=== PATIENT | male | born 1945 | race Caucasian/White ===

== ENCOUNTER 2016-11-20 09:09 | Emergency (ER) | payer MEDICARE ==
[2016-11-20 09:50] LABS: Basophils % (A) 1 %; CH 33.2; CHCM 34.1; Eosinophils # (A) 0.1 k/uL (0-0.7); Eosinophils % (A) 2 %; HCT 46.6 % (39.0-53.0); HDW 2.31; HGB 15.7 gm/dL (13.0-17.5); Luc # (Auto) 0.08; Luc % (Auto) 3; Lymphocytes # (A) 0.6 k/uL (1.0-4.8); Lymphocytes % (A) 22 %; MCH 32.9 pg (25.0-35.0); MCHC 33.7 g/dL (31.0-37.0); MCV 97.8 fL (80.0-100.0); Mean Platelet Volume 7.2; Monocytes # (A) 0.2 k/uL (0-1.0); Monocytes % (A) 8 %; Neutrophils # (A) 1.9 k/uL (1.3-7.7); Neutrophils % (A) 64 %; RBC 4.76 m/uL (4.30-5.90); RDW 12.3 % (11.5-15.5); WBC 2.9 k/uL (3.8-10.6); WBC (Perox) 2.83
[2016-11-20 09:58] LABS: INR 1.1 (<1.1); Prothrombin Time 10.9 sec (9.0-12.0)
--- NOTE | 2016-11-20 10:01 | ED ---
General Adult HPI - General Chief complaint: Chest Pain Stated complaint: chest pain Time Seen by Provider: 11/20/16 09:17 Source: patient, RN notes reviewed, old records reviewed Mode of arrival: wheelchair Limitations: no limitations - History of Present Illness Initial comments: This is a 8-year-old male the ER for evaluation. Patient presents today evaluation of chest pain, patient is having shortness of breath and chest pain going on for a week, exertional dyspnea occasional cough. Patient admits that feels like prior episodes of pneumonia. No diaphoresis. At this time patient still has a 71 same symptoms. Patient has tried climbing stairs because is no worsening of his symptoms, he was doing some activities today and felt the pain in his hydrocephaly, and get checked out. He has no history of heart disease - Related Data Home Medications Medication Instructions Recorded Confirmed Aspirin 81 mg PO HS 11/20/16 11/20/16 Terazosin HCl [Hytrin] 10 mg PO HS 11/20/16 11/20/16 Allergies Allergy/AdvReac Type Severity Reaction Status Date / Time shellfish derived [Shellfish] Allergy Unknown Verified 11/20/16 09:55 Sulfa (Sulfonamide Allergy Rash/Hives Verified 11/20/16 09:55 Antibiotics) Review of Systems ROS Statement: Those systems with pertinent positive or pertinent negative responses have been documented in the HPI. ROS Other: All systems not noted in ROS Statement are negative. Past Medical History Past Medical History: Prostate Disorder History of Any Multi-Drug Resistant Organisms: None Reported Past Surgical History: Joint Replacement, Orthopedic Surgery Additional Past Surgical History / Comment(s): right hip replacement, rotator cuff right shoulder Past Psychological History: No Psychological Hx Reported Smoking Status: Never smoker Past Alcohol Use History: Occasional Past Drug Use History: None Reported General Exam Limitations: no limitations General appearance: alert, in no apparent distress Head exam: Present: atraumatic, normocephalic, normal inspection Eye exam: Present: normal appearance, PERRL, EOMI. Absent: scleral icterus, conjunctival injection, periorbital swelling ENT exam: Present: normal exam, mucous membranes moist Neck exam: Present: normal inspection. Absent: tenderness, meningismus, lymphadenopathy Respiratory exam: Present: normal lung sounds bilaterally. Absent: respiratory distress, wheezes, rales, rhonchi, stridor Cardiovascular Exam: Present: regular rate, normal rhythm, normal heart sounds. Absent: systolic murmur, diastolic murmur, rubs, gallop, clicks GI/Abdominal exam: Present: soft, normal bowel sounds. Absent: distended, tenderness, guarding, rebound, rigid Extremities exam: Present: normal inspection, full ROM, normal capillary refill. Absent: tenderness, pedal edema, joint swelling, calf tenderness Back exam: Present: normal inspection Neurological exam: Present: alert, oriented X3, CN II-XII intact Psychiatric exam: Present: normal affect, normal mood Skin exam: Present: warm, dry, intact, normal color. Absent: rash Course Vital Signs 11/20/16 11/20/16 11/20/16 09:13 10:39 12:30 Temperature 98.5 F Pulse Rate 77 58 L 66 Respiratory 20 18 18 Rate Blood Pressure 149/71 141/79 177/80 O2 Sat by Pulse 99 97 99 Oximetry - Reevaluation(s) Reevaluation #1: 11/20/16 13:34 Patient is in no acute distress, no chest pain Reevaluation #2: 11/20/16 13:[address] Kaufman we will give patient's CTA EKG Findings - EKG Comments: EKG Findings:: EKG shows normal sinus rhythm rate of 74, ME 136, QRS 84, QTC 421 Medical Decision Making - Medical Decision Making 73 the ER for evaluation. Patient has nonspecific atypical chest pain, this will continue with outpatient stress test, see Dr. Wray office, EKG CTA and troponin are negative - Lab Data Result diagrams: 11/20/16 09:33 11/20/16 09:33 Lab Results 11/20/16 11/20/16 11/20/16 Range/Units 09:33 09:33 09:33 WBC 2.9 L (3.8-10.6) k/uL RBC 4.76 (4.30-5.90) m/uL Hgb 15.7 (13.0-17.5) gm/dL Hct 46.6 (39.0-53.0) % MCV 97.8 (80.0-100.0) fL MCH 32.9 (25.0-35.0) pg MCHC 33.7 (31.0-37.0) g/dL RDW 12.3 (11.5-15.5) % Plt Count 191 (150-450) k/uL Neutrophils % 64 % Lymphocytes % 22 % Monocytes % 8 % Eosinophils % 2 % Basophils % 1 % Neutrophils # 1.9 (1.3-7.7) k/uL Lymphocytes # 0.6 L (1.0-4.8) k/uL Monocytes # 0.2 (0-1.0) k/uL Eosinophils # 0.1 (0-0.7) k/uL Basophils # 0.0 (0-0.2) k/uL PT (9.0-12.0) sec INR (<1.1) APTT (22.0-30.0) sec Sodium 143 (137-145) mmol/L Potassium 4.2 (3.5-5.1) mmol/L Chloride 107 (98-107) mmol/L Carbon Dioxide 26 (22-30) mmol/L Anion Gap 10 mmol/L BUN 16 (9-20) mg/dL Creatinine 1.02 (0.66-1.25) mg/dL Est GFR (MDRD) Af Amer >60 (>60 ml/min/1.73 sqM) Est GFR (MDRD) Non-Af >60 (>60 ml/min/1.73 sqM) Glucose 141 H (74-99) mg/dL Calcium 9.2 (8.4-10.2) mg/dL Magnesium 2.3 (1.6-2.3) mg/dL Total Bilirubin 0.7 (0.2-1.3) mg/dL AST 24 (17-59) U/L ALT 20 L (21-72) U/L Alkaline Phosphatase 76 (38-126) U/L Total Creatine Kinase 107 (55-170) U/L CK-MB (CK-2) 1.5 (0.0-2.4) ng/mL CK-MB (CK-2) Rel Index 1.4 Troponin I <0.012 (0.000-0.034) ng/mL Total Protein 7.2 (6.3-8.2) g/dL Albumin 4.3 (3.5-5.0) g/dL Lipase 46 (23-300) U/L 11/20/16 Range/Units 09:33 WBC (3.8-10.6) k/uL RBC (4.30-5.90) m/uL Hgb (13.0-17.5) gm/dL Hct (39.0-53.0) % MCV (80.0-100.0) fL MCH (25.0-35.0) pg MCHC (31.0-37.0) g/dL RDW (11.5-15.5) % Plt Count (150-450) k/uL Neutrophils % % Lymphocytes % % Monocytes % % Eosinophils % % Basophils % % Neutrophils # (1.3-7.7) k/uL Lymphocytes # (1.0-4.8) k/uL Monocytes # (0-1.0) k/uL Eosinophils # (0-0.7) k/uL Basophils # (0-0.2) k/uL PT 10.9 (9.0-12.0) sec INR 1.1 (<1.1) APTT 24.0 (22.0-30.0) sec Sodium (137-145) mmol/L Potassium (3.5-5.1) mmol/L Chloride (98-107) mmol/L Carbon Dioxide (22-30) mmol/L Anion Gap mmol/L BUN (9-20) mg/dL Creatinine (0.66-1.25) mg/dL Est GFR (MDRD) Af Amer (>60 ml/min/1.73 sqM) Est GFR (MDRD) Non-Af (>60 ml/min/1.73 sqM) Glucose (74-99) mg/dL Calcium (8.4-10.2) mg/dL Magnesium (1.6-2.3) mg/dL Total Bilirubin (0.2-1.3) mg/dL AST (17-59) U/L ALT (21-72) U/L Alkaline Phosphatase (38-126) U/L Total Creatine Kinase (55-170) U/L CK-MB (CK-2) (0.0-2.4) ng/mL CK-MB (CK-2) Rel Index Troponin I (0.000-0.034) ng/mL Total Protein (6.3-8.2) g/dL Albumin (3.5-5.0) g/dL Lipase (23-300) U/L - Radiology Data Radiology results: report reviewed (Chest x-ray is negative, CT is negative for PE), image reviewed Disposition Clinical Impression: Chest pain Disposition: HOME SELF-CARE Condition: Good Instructions: Chest Pain (ED) Referrals: Mendez Acosat MD [Primary Care Provider] - 1-2 days
--- NOTE | 2016-11-20 10:01 | XR ---
EXAMINATION TYPE: XR chest 2V DATE OF EXAM: 11/20/2016 9:49 AM COMPARISON: Prior chest x-ray 18 April 2013 HISTORY: Chest pain TECHNIQUE: Frontal and lateral views of the chest are obtained. FINDINGS: There is no focal air space opacity, pleural effusion, or pneumothorax seen. The cardiac silhouette size is within normal limits. There are overlying cardiac leads. Patient is rotated. Pro minent lung volume may be indicative of COPD. The osseous structures are intact. IMPRESSION: No acute cardiopulmonary process.
[2016-11-20 10:03] LABS: ALT 20 U/L (21-72); AST 24 U/L (17-59); Alkaline Phosphatase 76 U/L (38-126); Anion Gap 10 mmol/L; Blood Urea Nitrogen 16 mg/dL (9-20); Calcium 9.2 mg/dL (8.4-10.2); Carbon Dioxide 26 mmol/L (22-30); Chloride 107 mmol/L (98-107); Glucose 141 mg/dL (74-99); Magnesium 2.3 mg/dL (1.6-2.3); Non-African American GFR(MDRD) >60 (>60 ml/min/1.73 sqM); Potassium 4.2 mmol/L (3.5-5.1); Sodium 143 mmol/L (137-145); Total Bilirubin 0.7 mg/dL (0.2-1.3); Total Protein 7.2 g/dL (6.3-8.2)
[2016-11-20 10:20] LABS: Creatine Kinase 107 U/L (55-170)
[2016-11-20 10:33] LABS: Creatine Kinase MB 1.5 ng/mL (0.0-2.4); Troponin I <0.012 ng/mL (0.000-0.034)
[2016-11-20 10:40] VITALS: RESP 18
[2016-11-20] MEDS ORDERED: RX INFO: IV CONTRAST WAS GIVEN 1 EACH MISC MISCELLANE PRN (11:46)
[2016-11-20] MEDS ORDERED: methylPREDNISolone SOD SUCCI 125 MG/2 ML VIAL IV STA (12:16)
[2016-11-20] MEDS ORDERED: diphenhydrAMINE 50 MG/ML 1 ML VIAL IVP STA (12:16)
[2016-11-20] MEDS ORDERED: FAMOTIDINE 20 MG/2 ML VIAL IV STA (12:16)
--- NOTE | 2016-11-20 13:00 | CT ---
EXAMINATION TYPE: CT angio chest DATE OF EXAM: 11/20/2016 12:52 PM COMPARISON: NONE HISTORY: Shortness of breath CT DLP: 529 mGycm CONTRAST: CT chest with contrast and 3D reconstruction with MIP imaging is performed with IV Contrast, patient injected with 100 mL of Omnipaque 350. Contrast-enhanced CT of the chest was performed through the course of the pulmonary arteries with vera g and mediastinal window settings submitted. 3D reconstruction with MIP imaging was also performed. PULMONARY ARTERIES: The pulmonary arteries and their major tributaries are patent. I do not see lakeshia dence for sizable filling defect to suggest pulmonary embolic process. LUNGS: The lungs are clear and free of infiltrate. Mild basilar compressive atelectasis. Calcified gr anuloma right lower lobe. No pulmonary nodule or mass is detected. No pleural effusion. MEDIASTINUM: Thoracic aorta is mildly aneurysmal at 4.1 cm. No complicating factor identified. The h eart is not enlarged. No evidence for mediastinal mass. No mediastinal lymph nodes greater than 1cm . HILAR STRUCTURES: No evidence for mass. No hilar lymph nodes greater than 1 cm. UPPER ABDOMEN: No significant abnormality is seen. IMPRESSION: 1. No evidence for Pulmonary embolism at this time.
[2016-11-20 13:35] VITALS: BP 163/85; PULSE 63; TEMP 97.6
== END 2016-11-20 13:39 | disposition home or self-care (01) ==
LOC: EC 09:09
DX: R07.89 Other chest pain (principal); R06.02 Shortness of breath; R05 Cough; N42.9 Disorder of prostate, unspecified; Z79.82 Long term (current) use of aspirin; Z79.899 Other long term (current) drug therapy; Z88.2 Allergy status to sulfonamides; Z91.013 Allergy to seafood
CPT/HCPCS: 36415; 93005; 80053; 82550; 82553; 83690; 83735; 84484; 85025; 85610; 85730; 71020; 71275; 99285; 96374; 96375 ×2; J1200; J2930; Q9967

== ENCOUNTER 2018-04-14 11:32 | Emergency (ER) | payer MEDICARE ==
--- NOTE | 2018-04-14 11:38 | ED ---
Chest Pain HPI - General Stated Complaint: chest pain Time Seen by Provider: 04/14/18 11:38 Source: RN notes reviewed, old records reviewed - History of Present Illness Initial Comments: This is a 72-year-old male the ER for evaluation. Patient presents today for evaluation regarding palpitations heart palpitations. Patient denies chest pain. Patient states he hasn't been feeling well this afternoon, feeling his heart is racing, feels weak and lightheaded. Denies any recent change in medications no drugs or alcohol abuse, no significant ingestion of caffeine. No recent travel history or sick contacts. No cough congestion or shortness of breath MD Complaint: other (palpitations) -: hour(s) Onset: during rest Worsens With: exertion Anginal Symptoms: dyspnea Other Symptoms: palpitations - Related Data Home Medications Medication Instructions Recorded Confirmed Aspirin 81 mg PO HS 11/20/16 04/14/18 Terazosin HCl [Hytrin] 10 mg PO HS 11/20/16 04/14/18 Allergies Allergy/AdvReac Type Severity Reaction Status Date / Time shellfish derived [Shellfish] Allergy Unknown Verified 04/14/18 12:44 Sulfa (Sulfonamide Allergy Rash/Hives Verified 04/14/18 12:44 Antibiotics) Review of Systems ROS Statement: Those systems with pertinent positive or pertinent negative responses have been documented in the HPI. ROS Other: All systems not noted in ROS Statement are negative. EKG Findings - EKG Comments: EKG Findings:: EKG shows A. fib with RVR rate 144, QRS 100, QTc 467. EKG shows sinus rhythm rate of 79, [place] 142, QRS 90, QTc 435 Past Medical History Past Medical History: Prostate Disorder History of Any Multi-Drug Resistant Organisms: None Reported Past Surgical History: Joint Replacement, Orthopedic Surgery Additional Past Surgical History / Comment(s): right hip replacement, rotator cuff right shoulder Past Psychological History: No Psychological Hx Reported Smoking Status: Never smoker Past Alcohol Use History: Occasional Past Drug Use History: None Reported General Exam General appearance: alert, in no apparent distress Head exam: Present: atraumatic, normocephalic, normal inspection Eye exam: Present: normal appearance, PERRL, EOMI. Absent: scleral icterus, conjunctival injection, periorbital swelling ENT exam: Present: normal exam, mucous membranes moist Neck exam: Present: normal inspection. Absent: tenderness, meningismus, lymphadenopathy Respiratory exam: Present: normal lung sounds bilaterally. Absent: respiratory distress, wheezes, rales, rhonchi, stridor Cardiovascular Exam: Present: tachycardia, irregular rhythm, normal heart sounds. Absent: systolic murmur, diastolic murmur, rubs, gallop, clicks GI/Abdominal exam: Present: soft, normal bowel sounds. Absent: distended, tenderness, guarding, rebound, rigid Extremities exam: Present: normal inspection, full ROM, normal capillary refill. Absent: tenderness, pedal edema, joint swelling, calf tenderness Back exam: Present: normal inspection Neurological exam: Present: alert, oriented X3, CN II-XII intact Psychiatric exam: Present: normal affect, normal mood Skin exam: Present: warm, dry, intact, normal color. Absent: rash Course Vital Signs 04/14/18 04/14/18 11:38 12:15 Temperature 97.1 F L Pulse Rate 141 H 83 Respiratory 18 18 Rate Blood Pressure 151/71 O2 Sat by Pulse 96 100 Oximetry - Reevaluation(s) Reevaluation #1: 04/14/18 12:35 Medical records thoroughly reviewed Reevaluation #2: 04/14/18 12:35 Patient spontaneously converted from A. fib with RVR, new EKG shows normal sinus rhythm Reevaluation #3: 04/14/18 12:35 Studies Chest x-rays negative for acute disease Chest Pain MDM - [facility] 72-year-old male the ER for evaluation of racing heart, patient found to be in A. fib with RVR. Patient spontaneously converted. We'll admit for cardiology evaluation Disposition Clinical Impression: Atrial fibrillation, Atrial fibrillation with rapid ventricular response Disposition: ADMITTED IP TO THIS HOSP Condition: Fair Is patient prescribed a controlled substance at d/c from ED?: No Referrals: Mendez Acosta MD [Primary Care Provider] - 1-2 days
[2018-04-14 11:40] VITALS: RESP 18; TEMP 97.1
[2018-04-14] MEDS ORDERED: DILTIAZEM DRIP BOLUS FROM BAG 1 MG SOLN IV ONE (11:43)
[2018-04-14] MEDS ORDERED: DILTIAZEM 50 MG in SODIUM CHLORIDE 0.9% 40 ML IV SCH (11:45)
--- NOTE | 2018-04-14 12:25 | XR ---
EXAMINATION TYPE: XR chest 2V DATE OF EXAM: 04/14/2018 COMPARISON: 11/20/2016 INDICATION: Chest pain irregular heartbeat short of breath TECHNIQUE: Frontal and lateral views of the chest are obtained. FINDINGS: The heart size is normal. The pulmonary vasculature is normal. The lungs are clear. Spondylosis is through the thoracic spine. No significant interval changes evid ent. IMPRESSION: 1. No acute pulmonary process.
[2018-04-14] MEDS ORDERED: NITROGLYCERIN SL TABS 0.4 MG TAB SUBLINGUAL PRN (12:33)
[2018-04-14] MEDS ORDERED: ASPIRIN 81 MG PO STA (12:33)
[2018-04-14 12:44] LABS: Basophils % (A) 1 %; Eosinophils % (A) 1 %; HCT 45.7 % (39.0-53.0); HGB 15.3 gm/dL (13.0-17.5); Lymphocytes # (A) 0.4 k/uL (1.0-4.8); Lymphocytes % (A) 9 %; MCH 32.6 pg (25.0-35.0); MCHC 33.6 g/dL (31.0-37.0); MCV 97.2 fL (80.0-100.0); Mean Platelet Volume 7.5; Monocytes # (A) 0.4 k/uL (0-1.0); Monocytes % (A) 8 %; Neutrophils # (A) 3.7 k/uL (1.3-7.7); Neutrophils % (A) 79 %; Platelet Count 190 k/uL (150-450); WBC 4.7 k/uL (3.8-10.6)
[2018-04-14] MEDS ORDERED: SODIUM CHLORIDE 0.9% 1,000 ML IV SCH (12:45)
[2018-04-14 12:46] LABS: Albumin 4.2 g/dL (3.5-5.0); Calcium 9.5 mg/dL (8.4-10.2); Magnesium 2.1 mg/dL (1.6-2.3); Potassium 4.4 mmol/L (3.5-5.1); Total Bilirubin 0.8 mg/dL (0.2-1.3)
[2018-04-14 12:50] LABS: INR 1.1 (<1.2); Partial Thromboplastin Time 22.8 sec (22.0-30.0); Prothrombin Time 10.4 sec (9.0-12.0)
[2018-04-14 13:13] LABS: Troponin I 0.027 ng/mL (0.000-0.034)
[2018-04-14 14:14] VITALS: BP 132/75
[2018-04-14 15:15] VITALS: PULSE 66
[2018-04-15] MEDS ORDERED: ASPIRIN 325 MG TAB PO SCH (09:00)
== END 2018-04-14 15:15 | disposition other institution (70) ==
LOC: EC 11:32
DX: I48.91 Unspecified atrial fibrillation (principal); N42.9 Disorder of prostate, unspecified; Z88.2 Allergy status to sulfonamides; Z91.013 Allergy to seafood; Z79.82 Long term (current) use of aspirin; Z79.899 Other long term (current) drug therapy; Z53.8 Procedure and treatment not carried out for other reasons
CPT/HCPCS: 36415; 71046; 80053; 82550; 82553; 83690; 83735; 83880; 84484; 85025; 85610; 85730; 93005; 99285

== ENCOUNTER → 2019-01-03 | Outpatient (CLI) | payer MEDICARE ==
--- NOTE | 2019-01-03 08:18 | US ---
EXAMINATION TYPE: US carotid duplex BILAT DATE OF EXAM: 01/03/2019 COMPARISON: NONE CLINICAL HISTORY: I65.23 Occlusion and stenosis of bilateral carotid. dizzy, vertigo, no HTN, no TIA EXAM MEASUREMENTS: RIGHT: Peak Systolic Velocity (PSV) cm/sec ----- Right CCA: 77.8 ----- Right ICA: 72.1 ----- Right ECA: 105.7 ICA/CCA ratio: 0.9 RIGHT: End Diastole cm/sec ----- Right CCA: 17.2 ----- Right ICA: 24.1 ----- Right ECA: 13.7 LEFT: Peak Systolic Velocity (PSV) cm/sec ----- Left CCA: 61.6 ----- Left ICA: 61.0 ----- Left ECA: 77.8 ICA/CCA ratio: 1.0 LEFT: End Diastole cm/sec ----- Left CCA: 14.5 ----- Left ICA: 19.0 ----- Left ECA: 9.5 VERTEBRALS (direction of flow): Right Vertebral: Antegrade Left Vertebral: Antegrade Rhythm: Normal No elevated velocities, significant stenosis, wall thickening or plaque seen. IMPRESSION: Mild degree of grayscale atheromatous plaquing with no sonographically evident hemodynam ically significant stenosis within either visualized carotid arterial system. Criteria for Assigning % of Stenosis / Diameter reduction (Estimation based on the indirect measurements of the internal carotid artery velocities (ICA PSV). 1. Normal (no stenosis)=ICA PSV < 125 cm/s: ratio < 2.0: ICA EDV<40 cm/s. 2. Less than 50% stenosis=ICA PSV < 125 cm/s: ratio < 2.0: ICA EDV<40 cm/s. 3. 50 to 69% stenosis=ICA PSV of 125 to 230 cm/s: ration 2.0 ? 4.0: ICA EDV 40-100 cm/s. 4. Greater than 70% stenosis to near occlusion= ICA PSV > 230 cm/s: ratio > 4.0: ICA EDV > 100 cm/s. 5. Near occlusion= ICA PSV velocities may be low or undetectable: variable ratio and ICA EDV. 6. Total occlusion=unable to detect flow.
== END | disposition home or self-care (01) ==
LOC: RADUSWWP 12-22 06:36
PROVIDERS: ATTEND Internal Medicine Geriatric Medicine
DX: I67.2 Cerebral atherosclerosis (principal)
CPT/HCPCS: 93880

== ENCOUNTER → 2019-01-05 | Outpatient (CLI) | payer MEDICARE ==
--- NOTE | 2019-01-05 12:09 | MR ---
EXAMINATION TYPE: MR brain wo/w con DATE OF EXAM: 01/05/2019 COMPARISON: HISTORY: Vertigo TECHNIQUE: Multiplanar, multisequence images of the brain and brainstem is performed without and with IV contras t, utilizing 8.5 mL intravenous Gadavist . FINDINGS: Diffusion weighted images demonstrate no evidence of a recent infarct or other diffusion ab normality. There is no extra-axial fluid collection. Periventricular, sub and juxtacortical confluen t and scattered hyperintensities on inversion recovery T2-weighted sequences are noted, greater than 50 lesions are present. There are normal vascular flow voids. The ventricular system and cisternal s paces are normal in size and appearance. The brain volume is age appropriate. Midline structures demonstrate normal morphology. The craniocervical junction appears within normal limits. Post contrast images demonstrate no abnormal enhancement. The dural venous sinuses appear pa tent. The visualized sinuses are remarkable for mild mucoperiosteal thickening in the maxillary sinus , ethmoid air cells and the globes are intact. IMPRESSION: Nonspecific white matter demyelination likely related to chronic small vessel ischemic ch anges.
== END | disposition home or self-care (01) ==
LOC: RADMRIMAIN 08:30
PROVIDERS: ATTEND Internal Medicine Geriatric Medicine
DX: G37.8 Other specified demyelinating diseases of central nervous system (principal)
CPT/HCPCS: 70553; A9585

== ENCOUNTER → 2019-01-06 | Outpatient (CLI) | payer MEDICARE ==
--- NOTE | 2019-01-06 12:14 | CONS ---
CONSULTATION DATE OF SERVICE: 01/06/2019 This 73-year-old gentleman has been evaluated in the sleep center for possible obstructive sleep apnea-hypopnea syndrome. HISTORY OF PRESENT ILLNESS/SLEEP-WAKE EVALUATION: Patient usual sleep schedule from 10 p.m. to 6 or 7 a.m. basically 7 days a week. No problems with falling asleep. No TV in bedroom. He sleeps in different positions with his . He has snoring according to her and he wakes up from sleep 2 times with nocturia. He may take one nap during the day at noon time. Usually feels refreshed after a nap. No seeing any vivid dreams during the nap. No history of hypnagogic hallucinations, sleep paralysis or cataplexy. [place] Sleepiness Scale is 7. PAST MEDICAL HISTORY: Positive for episodes of atrial fibrillation in April 2018, converted to normal sinus rhythm by itself, BPH. PAST SURGICAL HISTORY: Total right hip replacement, right shoulder surgery for rotator cuff, mandibular advancement surgery. MEDICATIONS: Terazosin, baby aspirin. SOCIAL HISTORY: Negative for smoking. Alcohol consumption 1 glass of wine with dinner daily. FAMILY HISTORY: Hypertension, CHF. REVIEW OF SYSTEMS: Awakenings from sleep with nocturia sometimes sleepiness during the day. Mild snoring. PHYSICAL EXAMINATION: During physical exam, gentleman without distress. VITAL SIGNS: BP 143/77, HR 68, RR 16, height 5 feet 11 inches, weight 192, body mass index 26.7, temperature 97.7, oxygen saturation at room air 98%. HEENT: PERRLA, EOMI. Oropharynx low position of soft palate. Mallampati 3-4. NECK: Supple, no JVD. Thyroid is not palpable. LUNGS: Clear to percussion and to auscultation. Good air exchange. No wheezing or rhonchi. HEART: S1, S2 regular. No murmurs, gallops, or rubs. ABDOMEN: Soft and nontender. Bowel sounds are present. No organomegaly appreciated. EXTREMITIES: Tendency for swelling of the legs, minimal. GROUND CONTROL APPROACH TECHNICIAN: Awake, alert, and oriented X3. Cranial nerves 2 to 7 intact. There is no fasciculation or atrophy. noted. No focal deficits observed. IMPRESSION: 1. Snoring, awakenings from sleep with nocturia, extremely low position of soft palate, sometimes sleepiness during the day, obstructive sleep apnea-hypopnea syndrome. 2. History of episodes of atrial fibrillation. 3. History of benign prostatic hypertrophy. 4. Status post total right hip replacement. 5. Status post surgical treatment of rotator cuff syndrome on the right shoulder. 6. Status post mandibular advancement surgical procedure. PLAN: 1. Polysomnography for evaluation of patient's breathing during sleep. 2. CPAP/BiPAP titration if sleep study confirms obstructive sleep apnea-hypopnea syndrome. 3. Preferable position during sleep on the side. 4. No driving if patient feels any sleepiness. 5. I will see patient for follow up visit to explain results of testing and following plan. Thank you very much for referring this patient for consultation. Sincerely, Dada Ahmadi MD, PhD, FAASM Diplomat of [employer] Sorting Supervisor of [facility] [place] [facility] / PEPE: [id number] /
== END ==
LOC: SLEEP 10:32
PROVIDERS: ATTEND Internal Medicine
DX: G47.33 Obstructive sleep apnea (adult) (pediatric) (principal); N40.0 Benign prostatic hyperplasia without lower urinary tract symptoms; Z86.79 Personal history of other diseases of the circulatory system; Z96.641 Presence of right artificial hip joint; Z98.890 Other specified postprocedural states; Z99.89 Dependence on other enabling machines and devices; Z79.899 Other long term (current) drug therapy; Z79.82 Long term (current) use of aspirin
CPT/HCPCS: 99211

== ENCOUNTER → 2019-03-22 | Outpatient (CLI) | payer MEDICARE ==
--- NOTE | 2019-03-22 11:09 | CT ---
EXAMINATION TYPE: CT abdomen pelvis w con DATE OF EXAM: 03/22/2019 COMPARISON: CT abdomen and pelvis 2010. HISTORY: Diverticulitis without abscess without bleeding per order. CT DLP: 1245 mGycm, Automated Exposure Control for Dose Reduction was Utilized. CONTRAST: CT scan of the abdomen and pelvis is performed with oral and with IV Contrast, patient injected with 100 mL of Isovue 300. FINDINGS: LUNG BASES: No significant abnormality is appreciated. LIVER/GB: No significant abnormality is appreciated. PANCREAS: No significant abnormality is seen. SPLEEN: No significant abnormality is seen. ADRENALS: No significant abnormality is seen. KIDNEYS: Symmetric cortical medullary uptake and excretion without hydronephrosis seen bilaterally. B ladder is poorly distended and thus suboptimally evaluated. Mild wall thickening is felt present. BOWEL: The oral contrast reaches level of the rectum. There is no suspicious small or large bowel dil atation. Suboptimal distention of stomach with mild to moderate prominence of gastric folds. Correlat e clinically to exclude gastritis. High positioning of cecum and right mid abdomen. Terminal ileum th ought within normal limits. Mild wall thickening left colon with poor distention. Diverticula in the sigmoid colon with mild wall thickening. No significant surrounding inflammatory change. PROSTATE/SEMINAL VESICLES: Slightly enlarged prostate bulging on bladder base. I suspect bladder outl et obstruction related to BPH, correlate clinically. LYMPH NODES: No greater than 1cm abdominal or pelvic lymph nodes are appreciated. OSSEOUS STRUCTURES: Slight underlying levoconvex scoliotic curvature. Multilevel spurring in the thor acolumbar spine. [id number] disc space narrowing with vacuum disc phenomenon and endplate scl erosis of the L4-L5 level. Metallic artifact from right hip arthroplasty causes streak artifact limit ing evaluation of pelvic structures. OTHER: No significant additional abnormality is seen. IMPRESSION: Confirmation of Sigmoid colonic diverticulosis without convincing CT evidence for acute d iverticulitis. Progression of diverticular disease from 2011 study noted.
== END | disposition home or self-care (01) ==
LOC: RADCTMAIN 08:30
PROVIDERS: ATTEND Internal Medicine Geriatric Medicine
DX: K57.30 Diverticulosis of large intestine without perforation or abscess without bleeding (principal)
CPT/HCPCS: 74177; Q9967

== ENCOUNTER → 2019-04-07 | Outpatient (CLI) | payer MEDICARE ==
--- NOTE | 2019-04-07 12:18 | SFUN ---
SLEEP CENTER FOLLOW UP NOTE DATE OF SERVICE: 04/07/2019 A 73-year-old gentleman who has been followed in the Sleep Center to discuss results of sleep study and following plan. Patient recently had a polysomnogram and I discussed results of sleep study with the patient in details. Sleep study showed apnea-hypopnea index of 4.4 with lowest oxygen level 19.1%, which by today's criteria is considered to be in normal range and does not need therapy with CPAP. Sleep study done also showed a significant amount of periodic limb movements, 88.2 per hour, but only with 3.5 microarousals per hour. Clinically, the patient sleeps well, does not feel sleepiness during the day. [place] Sleepiness Scale is 5. He does not have symptoms of awakenings from sleep with his leg movements. MEDICATIONS: Terazosin, aspirin. PHYSICAL EXAM: Patient in no distress. BP 145/79, HR 62, RR 16, height 5, 11, weight 198, body mass index is 26.2, temperature 98.2, oxygen saturation at room air 97%. OROPHARYNX: Low position of soft palate, Mallampati 3-4. Neck Supple, no JVD. Thyroid is not palpable. LUNGS Clear to percussion and to auscultation. Good air exchange. No wheezing or rhonchi. HEART S1, S2 regular. No murmurs, gallops, or rubs. ABDOMEN Soft and nontender. Bowel sounds are present. No organomegaly appreciated. EXTREMITIES No clubbing or cyanosis. CAFE OR RESTAURANT MANAGER Awake, alert, and oriented X3. Cranial nerves 2 to 7 intact. There is no fasciculation or atrophy. noted. No focal deficits observed. IMPRESSION: 1. No significant respiratory abnormalities by results of the sleep test. 2. Severe periodic limb movements have been documented, but without significant amount of microarousals and patient sleeps well. Clinically, does not have symptoms of restless legs or periodic limb movements. 3. History of atrial fibrillation. 4. History of benign prostatic hypertrophy. 5. Status post total right hip replacement. 6. Status post surgical treatment of rotator cuff syndrome of the right shoulder. 7. Status post mandibular advancement surgical procedure. PLAN: 1. Sleep hygiene with regular time in bed for at least 7-1/2 hours. 2. Please check iron profile with ferritin level. Sometimes low level of iron could be the reason for periodic limb movements. 3. Because there are no clinical symptoms of periodic limb movements, I do not think that treatment with dopaminergic agonist at the present time is necessary. 4. Precautions related to driving. No driving if feeling sleepiness. 5. If the patient will develop any symptoms of restless legs or periodic limb movements in the future, treatment with dopaminergic agonist will be indicated. Thank you very much for allowing me to participate in the management of the patient. Sincerely, Dada Ahmadi MD, PhD, FAASM Diplomat of [place] [employer] [place] [employer] Moving Picture Producer of [facility] [place] [facility] / YONYN: [id number] /
== END | disposition home or self-care (01) ==
LOC: SLEEP 11:28
PROVIDERS: ATTEND Internal Medicine
DX: G47.61 Periodic limb movement disorder (principal); Z86.79 Personal history of other diseases of the circulatory system; Z87.448 Personal history of other diseases of urinary system; Z96.641 Presence of right artificial hip joint; Z98.890 Other specified postprocedural states

== ENCOUNTER 2022-06-11 07:57 | Emergency (ER) | payer MEDICARE ==
[2022-06-11] MEDS ORDERED: IBUPROFEN 600 MG TAB PO STA (08:18)
[2022-06-11] MEDS ORDERED: ACETAMINOPHEN TAB 500 MG TAB PO STA (08:18)
--- NOTE | 2022-06-11 08:32 | ED ---
General Adult HPI - General Chief complaint: Upper Respiratory Infection Stated complaint: fatigue, fever Time Seen by Provider: 06/11/22 08:00 Source: patient, RN notes reviewed, old records reviewed Mode of arrival: ambulatory Limitations: no limitations - History of Present Illness Initial comments: This is a 76-year-old male who presents emergency Department complaining of congestion and a dry cough as well as a runny nose per patient states his been ongoing for 3 days. Patient states he woke up this morning felt warm did not take his temperature but he believes he had a temperature so he came into the emergency department. Patient states she's concern is gotten pneumonia. Patient states he has a history of atrial fibrillation and is on blood thinners. Patient denies any shortness of breath. Patient states he feels like he has chest congestion. Patient denies any back pain. Patient denies any nausea vomiting or diarrhea. Patient denies any swelling to the legs or calf tenderness. - Related Data Home Medications Medication Instructions Recorded Confirmed Aspirin 81 mg PO HS 11/20/16 04/14/18 Terazosin HCl [Hytrin] 10 mg PO HS 11/20/16 04/14/18 Previous Rx's Medication Instructions Recorded Azithromycin [Zithromax Tri-Sam (3 500 mg PO DAILY 3 Days #3 tab 06/11/22 tabs)] Allergies Allergy/AdvReac Type Severity Reaction Status Date / Time shellfish derived [Shellfish] Allergy Unknown Verified 06/11/22 08:00 Sulfa (Sulfonamide Allergy Rash/Hives Verified 06/11/22 08:00 Antibiotics) Review of Systems ROS Statement: Those systems with pertinent positive or pertinent negative responses have been documented in the HPI. ROS Other: All systems not noted in ROS Statement are negative. Past Medical History Past Medical History: Prostate Disorder History of Any Multi-Drug Resistant Organisms: None Reported Past Surgical History: Joint Replacement, Orthopedic Surgery Additional Past Surgical History / Comment(s): right hip replacement, rotator cuff right shoulder Past Psychological History: No Psychological Hx Reported Smoking Status: Never smoker Past Alcohol Use History: Occasional Past Drug Use History: None Reported General Exam - General Exam Comments Initial Comments: GENERAL: Patient is well-developed and well-nourished. Patient is nontoxic and well- hydrated and is in no acute distress. ENT: Neck is soft and supple. No significant lymphadenopathy is noted. Oropharynx is clear. Moist mucous membranes. Neck has full range of motion without eliciting any pain. EYES: The sclera were anicteric and conjunctiva were pink and moist. Extraocular movements were intact and pupils were equal round and reactive to light. Eyelids were unremarkable. PULMONARY: Unlabored respirations. Good breath sounds bilaterally. No audible rales rhonchi or wheezing was noted. CARDIOVASCULAR: There is a regular rate and rhythm without any murmurs gallops or rubs. ABDOMEN: Soft and nontender with normal bowel sounds. SKIN: Skin is clear with no lesions or rashes and otherwise unremarkable. NEUROLOGIC: Patient is alert and oriented x3. Cranial nerves II through XII are grossly intact. Motor and sensory are also intact. Normal speech, volume and content. Symmetrical smile. MUSCULOSKELETAL: Normal extremities with adequate strength and full range of motion. LYMPHATICS: No significant lymphadenopathy is noted PSYCHIATRIC: Normal psychiatric evaluation. Limitations: no limitations Course Vital Signs 06/11/22 06/11/22 06/11/22 07:58 08:14 09:49 Temperature 98.6 F 100.9 F H 98.5 F Pulse Rate 60 69 Respiratory 20 16 Rate Blood Pressure 150/70 118/70 O2 Sat by Pulse 96 96 Oximetry Medical Decision Making - Medical Decision Making EKG was interpreted by ne EKG shows a sinus rhythm at 61 bpm UT interval 254 QRS is 82 QT interval 382 QTC is 386. Patient's EKG shows no ST segment elevation or depression. Chest x-ray was interpreted by me. Chest x-ray shows no acute abnormalities or pleural effusion noted Influenza A was negative, influenza B was negative, RSV was negative, COVID was negative. - Lab Data Lab Results 06/11/22 Range/Units 08:38 Influenza Type A (PCR) Not Detected (Not Detectd) Influenza Type B (PCR) Not Detected (Not Detectd) RSV (PCR) Not Detected (Not Detectd) SARS-CoV-2 (PCR) Not Detected (Not Detectd) Disposition Clinical Impression: Upper respiratory tract infection Disposition: HOME SELF-CARE Condition: Good Instructions (If sedation given, give patient instructions): Upper Respiratory Infection (ED) Prescriptions: Azithromycin [Zithromax Tri-Sam (3 tabs)] 500 mg PO DAILY 3 Days #3 tab Is patient prescribed a controlled substance at d/c from ED?: No Referrals: Mendez Acosta MD [Primary Care Provider] - 1-2 days Time of Disposition: 09:55
--- NOTE | 2022-06-11 09:04 | XR ---
EXAMINATION TYPE: XR chest 2V DATE OF EXAM: 06/11/2022 COMPARISON: 04/14/18 HISTORY: Shortness of breath TECHNIQUE: Frontal and lateral views of the chest are obtained. FINDINGS: Scattered senescent parenchymal changes noted. Hyperinflation compatible with COPD. No evidence for infiltrate. No evidence for atelectasis. Heart size is stable. Mediastinal structures are stable and grossly unremarkable. No evidence for hilar prominence. Degenerative changes dorsal spine. IMPRESSION: 1. No evidence for acute pulmonary disease.
[2022-06-11 09:52] VITALS: BP 118/70; PULSE 69; RESP 16; TEMP 98.5
== END 2022-06-11 09:55 | disposition home or self-care (01) ==
LOC: EC 07:57
DX: J06.9 Acute upper respiratory infection, unspecified (principal); N39.0 Urinary tract infection, site not specified; Z20.822 Contact with and (suspected) exposure to COVID-19; Z91.013 Allergy to seafood; Z88.2 Allergy status to sulfonamides; Z79.82 Long term (current) use of aspirin
CPT/HCPCS: 71046; 87636; 93005; 99284

== ENCOUNTER → 2022-06-18 | Outpatient (CLI) | payer MEDICARE ==
--- NOTE | 2022-06-19 07:42 | US ---
EXAMINATION TYPE: US kidneys/renal and bladder DATE OF EXAM: 06/18/2022 COMPARISON: NONE CLINICAL HISTORY: 76-year-old male N17.9 ACUTE KIDNEY INJURY. MARK TECHNIQUE: Multiple sonographic images of the kidneys and bladder are obtained. FINDINGS: EXAM MEASUREMENTS: Right Kidney: 10.5 x 5.8 x 4.7 cm Left Kidney: 10.7 x 5.0 x 4.6 cm Right Kidney: No hydronephrosis or masses seen Left Kidney: No hydronephrosis or masses seen Bladder: Underdistention of the bladder limits its evaluation. Bilateral Jets seen: Only the right IMPRESSION: No hydronephrosis.
== END | disposition home or self-care (01) ==
LOC: RADUSWWP 14:56
PROVIDERS: ATTEND Internal Medicine Geriatric Medicine
DX: N17.9 Acute kidney failure, unspecified (principal)
CPT/HCPCS: 76770

== ENCOUNTER → 2022-08-13 | Outpatient (CLI) | payer MEDICARE ==
[2022-08-13 14:26] LABS: Basophils # (A) 0.05 X 10*3/uL (0.00-0.10); Basophils % (A) 1.4 %; Eosinophils # (A) 0.07 X 10*3/uL (0.04-0.35); Eosinophils % (A) 1.9 %; HCT 44.2 % (39.6-50.0); HGB 14.9 g/dL (13.0-17.0); Immature Grans, Automated 0.3 %; Lymphocytes # (A) 0.94 X 10*3/uL (0.90-5.00); Lymphocytes % (A) 25.6 %; MCH 33.5 pg (27.0-32.0); MCHC 33.7 g/dL (32.0-37.0); MCV 99.3 fL (80.0-97.0); Mean Platelet Volume 10.1 fL (9.5-12.2); Monocytes # (A) 0.42 X 10*3/uL (0.20-1.00); Monocytes % (A) 11.4 %; NRBC Per 100 WBC 0 /100 WBCS (0.0-0.0); Neutrophils # (A) 2.18 X 10*3/uL (1.80-7.70); Neutrophils % (A) 59.4 %; Platelet Count 205 X 10*3/uL (140-440); RBC 4.45 X 10*6/uL (4.40-5.60); RDW 12.1 % (11.5-14.5); WBC 3.67 X 10*3/uL (4.50-10.00)
[2022-08-13 15:16] LABS: African American GFR (CKD) 58.2 (60.0-200.0); Albumin 4.6 g/dL (3.8-4.9); Albumin/Globulin Ratio 2.14 (1.60-3.17); Anion Gap 8.6 mmol/L (10.00-18.00); BUN/Creat Ratio 15.59 Ratio (12.00-20.00); Blood Urea Nitrogen 21.2 mg/dL (9.0-27.0); Calcium 9.9 mg/dL (8.7-10.3); Globulin 2.2 g/dL (1.6-3.3); Non-African American GFR(CKD) 50.2 (60.0-200.0); Potassium 4.5 mmol/L (3.5-5.5); Total Bilirubin 0.6 mg/dL (0.30-1.20); Total Protein 6.8 g/dL (6.2-8.2)
[2022-08-13 18:01] LABS: Appearance,Urine Clear (Clear); Bilirubin,Urine Negative (Negative); Blood,Urine Negative (Negative); Color,Urine Yellow (Yellow); Ketones,Urine Negative (Negative); Nitrite,Urine Negative (Negative); Specific Gravity,Urine 1.021 (1.001-1.030)
== END | disposition home or self-care (01) ==
LOC: LABPAT 09:47
PROVIDERS: ATTEND Urology
DX: Z01.812 Encounter for preprocedural laboratory examination (principal); N40.1 Benign prostatic hyperplasia with lower urinary tract symptoms; N13.8 Other obstructive and reflux uropathy; R31.29 Other microscopic hematuria
CPT/HCPCS: 80053; 81003; 85025; 87086

== ENCOUNTER 2022-11-25 15:40 | Emergency (ER) | payer MEDICARE ==
[2022-11-25 16:05] VITALS: PULSE 75; RESP 18; TEMP 98.4
[2022-11-25] MEDS ORDERED: SODIUM CHLORIDE 0.9% 1,000 ML IV STA (17:01)
[2022-11-25 17:39] LABS: Basophils % (A) 1 %; Eosinophils % (A) 1 %; HCT 43.8 % (39.0-53.0); HGB 14.8 gm/dL (13.0-17.5); Lymphocytes # (A) 0.8 k/uL (1.0-4.8); Lymphocytes % (A) 18 %; MCH 33.6 pg (25.0-35.0); MCHC 33.7 g/dL (31.0-37.0); MCV 99.6 fL (80.0-100.0); Mean Platelet Volume 7.5; Monocytes # (A) 0.4 k/uL (0-1.0); Monocytes % (A) 8 %; Neutrophils % (A) 68 %; Platelet Count 209 k/uL (150-450); RDW 11.9 % (11.5-15.5); WBC 4.4 k/uL (3.8-10.6)
--- NOTE | 2022-11-25 17:44 | CT ---
EXAMINATION TYPE: CT abdomen pelvis wo con DATE OF EXAM: 11/25/2022 HISTORY: lower abd pain CT DLP: 603.4 mGycm. Automated Exposure Control for Dose Reduction was Utilized. TECHNIQUE: CT scan of the abdomen and pelvis is performed without oral or IV contrast. COMPARISON: CT abdomen and pelvis March 22, 2019 FINDINGS: Within the limitations of a non-contrast study, the following observations are made. LUNG BASES: No significant abnormality is appreciated. LIVER/GB: No significant abnormality is appreciated. PANCREAS: No significant abnormality is seen. SPLEEN: No significant abnormality is seen. ADRENALS: No significant abnormality is seen. KIDNEYS: No renal stones or hydronephrosis is present bilaterally. BOWEL: No suspicious small or large bowel dilatation. Some redundant sigmoid colon is present. Few sc attered colonic diverticula. No convincing CT evidence for acute diverticulitis. GENITAL ORGANS: Mildly enlarged prostate gland is redemonstrated. LYMPH NODES: No greater than 1cm abdominal or pelvic lymph nodes are appreciated. OSSEOUS STRUCTURES: Metallic hardware from right hip replacement is redemonstrated. This causes strea k artifact somewhat limiting evaluation of pelvic structures. Multilevel spurring and disc space narr owing in the thoracolumbar spine. Multilevel facet arthropathy in the mid to lower lumbar spine. OTHER: No significant additional abnormality is seen. IMPRESSION: No acute findings are evident.
[2022-11-25 17:50] LABS: Appearance,Urine Clear (Clear); Bilirubin,Urine Negative (Negative); Blood,Urine Negative (Negative); Color,Urine Yellow; Glucose,Urine (UA) Negative (Negative); Hyaline Casts,Urine 2 /lpf (0-2); Ketones,Urine 2+ (Negative); Leukocyte Esterase,Urine Negative (Negative); Mucus,Urine Many /hpf; Nitrite,Urine Negative (Negative); PH, Urine 5.5 (5.0-8.0); Protein,Urine 1+ (Negative); RBC,Urine 3 /hpf (0-5); Specific Gravity,Urine 1.029 (1.001-1.035); Squamous Epithelial Cell,Urine <1 /hpf (0-4); Urobilinogen,Urine <2.0 mg/dL (<2.0); WBC,Urine 8 /hpf (0-5)
[2022-11-25 17:55] LABS: Albumin 4.5 g/dL (3.5-5.0); Calcium 9.4 mg/dL (8.4-10.2); Potassium 3.9 mmol/L (3.5-5.1); Total Protein 7.1 g/dL (6.3-8.2)
[2022-11-25] MEDS ORDERED: PEG 3350 (236 GM/BTL) + LYTES 4,000 ML BOTTLE PO ONE (18:21)
--- NOTE | 2022-11-25 18:53 | ED ---
General Adult HPI - General Chief complaint: Abdominal Pain Stated complaint: ABD PAIN Time Seen by Provider: 11/25/22 16:52 Source: patient, RN notes reviewed Mode of arrival: ambulatory Limitations: no limitations - History of Present Illness Initial comments: 77-year-old male presents to the emergency department chief complaint of laceration and abdominal pain 7 days. Patient states that he has been unable to have a bowel movement for the past 7 days. Patient states that he has been having constipation for 2 months on and off. Patient is able to pass gas. Patient reports diffuse tenderness and bloating. He states he has not been eating as much as usual because he feels bloated and full. Reports taking MiraLAX, lactulose, administering a Fleet enema. He recently underwent a TURP but has not had any prior abdominal surgeries. Denies fever, chills. Denies nausea, vomiting. - Related Data Home Medications Medication Instructions Recorded Confirmed Terazosin HCl [Hytrin] 10 mg PO HS 11/20/16 08/20/22 Multivitamins, Thera [Multivitamin 1 tab PO DAILY 08/14/22 08/20/22 (formulary)] Niacinamide 500 mg PO BID 08/14/22 08/20/22 Rosuvastatin Calcium 5 mg PO HS 08/14/22 08/20/22 Tamsulosin [Flomax] 0.4 mg PO HS 08/14/22 08/20/22 Vit C/E/Zn/Coppr/Lutein/Zeaxan 1 cap PO DAILY 08/14/22 08/20/22 [Preservision Areds 2 Softgel] amLODIPine [Norvasc] 5 mg PO QAM 08/14/22 08/20/22 hydroCHLOROthiazide 25 mg PO QAM 08/14/22 08/20/22 Allergies Allergy/AdvReac Type Severity Reaction Status Date / Time shellfish derived [Shellfish] Allergy Unknown Verified 11/25/22 16:02 Sulfa (Sulfonamide Allergy Rash/Hives Verified 11/25/22 16:02 Antibiotics) Review of Systems ROS Statement: Those systems with pertinent positive or pertinent negative responses have been documented in the HPI. ROS Other: All systems not noted in ROS Statement are negative. Past Medical History Past Medical History: Atrial Fibrillation, Hyperlipidemia, Hypertension, Prostate Disorder Additional Past Medical History / Comment(s): BPH. 08/14/22:SHORT BOUT WITH AFIB 3 YEARS, NO FURTHER PROBLEMS. History of Any Multi-Drug Resistant Organisms: None Reported Past Surgical History: Joint Replacement, Orthopedic Surgery Additional Past Surgical History / Comment(s): BILATERAL CATARACTS AND LENS IMPLANT. right hip replacement, rotator cuff right shoulder. MANDIBULAR ADVANCEMENT. Past Anesthesia/Blood Transfusion Reactions: No Reported Reaction Past Psychological History: No Psychological Hx Reported Smoking Status: Never smoker Past Alcohol Use History: Occasional Past Drug Use History: None Reported - Past Family History Mother Family Medical History: No Reported History General Exam Limitations: no limitations General appearance: alert, in no apparent distress Head exam: Present: atraumatic, normocephalic, normal inspection Eye exam: Present: normal appearance ENT exam: Present: normal exam, mucous membranes moist Respiratory exam: Present: normal lung sounds bilaterally. Absent: respiratory distress, wheezes, rales, rhonchi, stridor Cardiovascular Exam: Present: regular rate, normal rhythm, normal heart sounds. Absent: systolic murmur, diastolic murmur, rubs, gallop, clicks GI/Abdominal exam: Present: soft, tenderness (mild diffuse), hyperactive bowel sounds. Absent: guarding, rebound, rigid, bruit, pulsatile mass Extremities exam: Present: normal inspection, full ROM, normal capillary refill. Absent: tenderness, pedal edema, joint swelling, calf tenderness Back exam: Present: normal inspection Neurological exam: Present: alert, oriented X3 Psychiatric exam: Present: normal affect, normal mood Skin exam: Present: warm, dry, intact, normal color. Absent: rash Course Vital Signs 11/25/22 11/25/22 16:02 19:01 Temperature 98.4 F Pulse Rate 75 75 Respiratory 18 18 Rate Blood Pressure 143/79 140/60 O2 Sat by Pulse 95 95 Oximetry Medical Decision Making - Medical Decision Making Was pt. sent in by a medical professional or institution (, PA, METER SHOP SUPERVISOR, urgent care, hospital, or custodial...) When possible be specific @ -No Did you speak to anyone other than the patient for history (EMS, parent, family, police, friend...)? What history was obtained from this source @ -No Did you review nursing and triage notes (agree or disagree)? Why? @ -I reviewed and agree with nursing and triage notes Were old charts reviewed (outside hosp., previous admission, EMS record, old EKG, old radiological studies, urgent care reports/EKG's, custodial records)? Report findings @ -No old charts were reviewed Differential Diagnosis (chest pain, altered mental status, abdominal pain women, abdominal pain men, vaginal bleeding, weakness, fever, dyspnea, syncope, headache, dizziness, GI bleed, back pain, seizure, CVA, palpatations, mental health, musculoskeletal)? @ -Differential Abdominal Pain Men: Appendicitis, cholecystitis, diverticulosis, ischemic bowel, pancreatitis, hepatitis, UTI, gastroenteritis, AAA, incarcerated hernia, bowel obstruction, constipation, inflammatory bowel, hepatitis, peptic ulcer disease, splenic infarction, perforated viscus, testicular torsion, this is not meant to be an all-inclusive list EKG interpreted by me (3pts min.). @ -None X-rays interpreted by me (1pt min.). @ -None done CT interpreted by me (1pt min.). @ -CT abdomen and pelvis interpreted by me showed no evidence of bowel obstruction, no acute findings. U/S interpreted by me (1pt. min.). @ -None done What testing was considered but not performed or refused? (CT, X-rays, U/S, labs)? Why? @ -None What meds were considered but not given or refused? Why? @ -None Did you discuss the management of the patient with other professionals (professionals i.e. , PA, METER SHOP SUPERVISOR, lab, RT, psych nurse, dialysis social worker, pile driving supervisor, teacher, deputy juvenile officer, spring encaser)? Give summary @ -No Was smoking cessation discussed for >3mins.? @ -No Was critical care preformed (if so, how long)? @ -No Were there social determinants of health that impacted care today? How? (Homelessness, low income, unemployed, alcoholism, drug addiction, transportation, low edu. Level, literacy, decrease access to med. care, skilled nursing, rehab)? @ -No Was there de-escalation of care discussed even if they declined (Discuss DNR or withdrawal of care, Hospice)? DNR status @ -No What co-morbidities impacted this encounter? (DM, HTN, Smoking, COPD, CAD, Cancer, CVA, ARF, Chemo, Hep., AIDS, mental health diagnosis, sleep apnea, morbid obesity)? @ -None Was patient admitted / discharged? Hospital course, mention meds given and route, prescriptions, significant lab abnormalities, going to OR and other pertinent info. @ -Discharged. Patient presented to emergency department chief complaint of constipation and abdominal pain 7 days. CBC and CMP were obtained which were within normal limits. CT abdomen and pelvis was obtained which showed no acute findings, no evidence of bowel obstruction. Patient was given the option of having in enema in the emergency department or giving himself and at home which he would rather do. Patient was given Golytely to go home with to help with his constipation. Case discussed with my attending, Dr. Reid. Patient discharged in stable condition. Undiagnosed new problem with uncertain prognosis? @ -No Drug Therapy requiring intensive monitoring for toxicity (Heparin, Nitro, Insulin, Cardizem)? @ -No Were any procedures done? @ -No Diagnosis/symptom? @ -constipation Acute, or Chronic, or Acute on Chronic? @ -Acute Uncomplicated (without systemic symptoms) or Complicated (systemic symptoms)? @ -uncomplicated Side effects of treatment? @ -No Exacerbation, Progression, or Severe Exacerbation? @ -No Poses a threat to life or bodily function? How? (Chest pain, [place], [place], pneumonia, PE, COPD, DKA, ARF, appy, cholecystitis, CVA, Diverticulitis, Homicidal, Suicidal, threat to staff... and all critical care pts) @ -No - Lab Data Result diagrams: 11/25/22 17:17 11/25/22 17:17 Lab Results 11/25/22 11/25/22 11/25/22 Range/Units 17:17 17:17 17:17 WBC 4.4 (3.8-10.6) k/uL RBC 4.40 (4.30-5.90) m/uL Hgb 14.8 (13.0-17.5) gm/dL Hct 43.8 (39.0-53.0) % MCV 99.6 (80.0-100.0) fL MCH 33.6 (25.0-35.0) pg MCHC 33.7 (31.0-37.0) g/dL RDW 11.9 (11.5-15.5) % Plt Count 209 (150-450) k/uL MPV 7.5 Neutrophils % 68 % Lymphocytes % 18 % Monocytes % 8 % Eosinophils % 1 % Basophils % 1 % Neutrophils # 3.0 (1.3-7.7) k/uL Lymphocytes # 0.8 L (1.0-4.8) k/uL Monocytes # 0.4 (0-1.0) k/uL Eosinophils # 0.0 (0-0.7) k/uL Basophils # 0.0 (0-0.2) k/uL Sodium 140 (137-145) mmol/L Potassium 3.9 (3.5-5.1) mmol/L Chloride 100 (98-107) mmol/L Carbon Dioxide 28 (22-30) mmol/L Anion Gap 12 mmol/L BUN 25 H (9-20) mg/dL Creatinine 1.24 (0.66-1.25) mg/dL Est GFR (CKD-EPI)AfAm 65 (>60 ml/min/1.73 sqM) Est GFR (CKD-EPI)NonAf 57 (>60 ml/min/1.73 sqM) Glucose 94 (74-99) mg/dL Calcium 9.4 (8.4-10.2) mg/dL Total Bilirubin 1.0 (0.2-1.3) mg/dL AST 28 (17-59) U/L ALT 19 (4-49) U/L Alkaline Phosphatase 72 (38-126) U/L Total Protein 7.1 (6.3-8.2) g/dL Albumin 4.5 (3.5-5.0) g/dL Amylase 64 (30-110) U/L Lipase 41 (23-300) U/L Urine Color Yellow Urine Appearance Clear (Clear) Urine pH 5.5 (5.0-8.0) Ur Specific [place] 1.029 (1.001-1.035) Urine Protein 1+ H (Negative) Urine Glucose (UA) Negative (Negative) Urine Ketones 2+ H (Negative) Urine Blood Negative (Negative) Urine Nitrite Negative (Negative) Urine Bilirubin Negative (Negative) Urine Urobilinogen <2.0 (<2.0) mg/dL Ur Leukocyte Esterase Negative (Negative) Urine RBC 3 (0-5) /hpf Urine WBC 8 H (0-5) /hpf Ur Squamous Epith Cells <1 (0-4) /hpf Hyaline Casts 2 (0-2) /lpf Urine Mucus Many H (None) /hpf Disposition Clinical Impression: Constipation Disposition: HOME SELF-CARE Condition: Stable Additional Instructions: Please return to the Emergency Department if symptoms worsen or any other concerns. Is patient prescribed a controlled substance at d/c from ED?: No Referrals: Mendez Acosta MD [Primary Care Provider] - 1-2 days Time of Disposition: 18:48
[2022-11-25 19:04] VITALS: BP 140/60
== END 2022-11-25 19:04 | disposition home or self-care (01) ==
LOC: EC 15:40
DX: K59.00 Constipation, unspecified (principal); I10 Essential (primary) hypertension; E78.5 Hyperlipidemia, unspecified; I48.91 Unspecified atrial fibrillation; Z79.899 Other long term (current) drug therapy; Z88.1 Allergy status to other antibiotic agents; Z88.2 Allergy status to sulfonamides
CPT/HCPCS: 36415; 74176; 80053; 81001; 82150; 83690; 85025; 96360; 99284

== ENCOUNTER → 2023-10-21 | Outpatient (CLI) | payer MEDICARE ==
--- NOTE | 2023-10-23 10:44 | MR ---
EXAMINATION TYPE: MR brain/cspine wo/w DATE OF EXAM: 10/21/2023 9:36 PM CLINICAL INDICATION:Male, 78 years old with history of M54.2,R42; PHH, Vertigo, Visual variance right side, Neck pain, muscle spasms, difficulty turning head COMPARISON: 01/05/2019. TECHNIQUE: Multi planar, multi sequence imaging was performed through the brain including: T1, T2, Inversion rec overy, Diffusion weighted imaging, and gradient echo imaging. No gadolinium was given. Multi planar, multi sequence imaging was performed utilizing: T1-weighted, T2-weighted, and turbo inv ersion recovery imaging of the cervical spine. IV Contrast: 8 cc Gadavist FINDINGS: Mild cerebral atrophy with proportional dilation of ventricular system. Patchy areas of high T2 sig nal intensity are seen within the periventricular white matter. Midline structures show no abnormalit y. Diffusion-weighted imaging shows no evidence of restricted diffusion. The susceptibility weighted images do not reveal any evidence for micro-hemorrhage. No abnormal postcontrast enhancement. The bone marrow signal is within normal limits. Paranasal sinuses and mastoid air cells: No significant paranasal sinus disease. Visualized orbits: Orbital contents are intact. Alignment: The cervical vertebral bodies have preserved heights. Alignment is within normal limits [facility] patient positioning. Bones: Multilevel disc space narrowing and osteophyte formation with facet and uncovertebral joint ar thropathy. There is enhancement around the C2-C3 left transverse process/facets Cord: The spinal cord is unremarkable with regards to their signal intensity and morphology. Discs: Multilevel disc desiccation is present. C2-C3: No significant disc pathology. The spinal canal is patent. Bilateral facet and uncovertebral joint arthropathy are present with mild bilateral neural foraminal stenosis. C3-C4: No significant disc pathology. The spinal canal is patent. Bilateral facet and uncovertebral joint arthropathy are present with mild bilateral neural foraminal stenosis. C4-C5: No significant disc pathology. The spinal canal is patent. Bilateral facet and uncovertebral joint arthropathy are present with mild bilateral neural foraminal stenosis. C5-C6: No significant disc pathology. The spinal canal is patent. No neural foraminal stenosis. C6-C7: A disc osteophyte complex is present which minimally narrows the ventral subarachnoid space. Bilateral facet and uncovertebral joint arthropathy are present with mild right and mild to moderate left neural foraminal stenosis. C7-T1: No significant disc pathology. The spinal canal is patent. No neural foraminal stenosis. Other: None. IMPRESSION: 1. No evidence for disc herniation or significant spinal canal stenosis. 2. Multilevel disc degeneration with associated osteoarthritic changes. 3. Active enhancement around the C2-C3 lateral facets suggesting active inflaemmation. 4. No evidence of intracranial mass or acute/subacute infarct. No abnormal postcontrast enhancement. 5. Nonspecific white matter changes, likely secondary to small vessel ischemic disease. 6. Mild cerebral atrophy changes with proportional dilation of ventricles.
== END | disposition home or self-care (01) ==
LOC: RADMRIMAIN 20:30
PROVIDERS: ATTEND Internal Medicine Geriatric Medicine
DX: R42 Dizziness and giddiness (principal); G31.9 Degenerative disease of nervous system, unspecified
CPT/HCPCS: 70553; 72156; A9585